=== PATIENT | female | born 1975 | race Caucasian/White ===

== ENCOUNTER 2018-05-10 14:46 | Outpatient (CLI) | payer BC, MEDICAID ==
[~2018-05-10 14:46] MED LIST: CLON0.2T PO; HYDR-3964 PO; IBUP-1985 PO; LISD40CA PO; LISI10TA4 PO
== END 2018-05-10 23:59 | disposition home or self-care (01) ==
LOC: CARD DIAG 14:46
PROVIDERS: ATTEND Internal Medicine Cardiovascular Disease
DX: Z01.818 Encounter for other preprocedural examination (principal); I05.9 Rheumatic mitral valve disease, unspecified; I11.9 Hypertensive heart disease without heart failure; F17.200 Nicotine dependence, unspecified, uncomplicated
CPT/HCPCS: 93306

== ENCOUNTER 2018-07-22 11:09 | Outpatient (CLI) | payer BC, MEDICAID, OTHER | END 2018-07-22 23:59 | disposition home or self-care (01) | LOC: VAS 11:09 | PROVIDERS: ATTEND Nurse Practitioner Family | DX: Q62.5 Duplication of ureter (principal); I10 Essential (primary) hypertension; F17.200 Nicotine dependence, unspecified, uncomplicated; Z98.890 Other specified postprocedural states; Z88.8 Allergy status to other drugs, medicaments and biological substances | CPT/HCPCS: 93975 ==

== ENCOUNTER 2020-02-09 11:27 | Outpatient (CLI) | payer BC, MEDICAID ==
[~2020-02-09] VITALS: Ht 172.7 cm; Wt 93.0 kg
[2020-02-09] VITALS (9 sets, daily range): BP systolic 108–137; BP diastolic 65–85
[2020-02-09] MEDS ORDERED: metoprolol tartrate 1mg/ml inj IV PRN (12:40)
[2020-02-09] MEDS ORDERED: aminophylline 250mg/10ml inj. IV PRN (12:40)
[2020-02-09] MEDS ORDERED: nitroGLYCERIN 0.4mg SUBLingual tab SL PRN (12:40)
[2020-02-09] MEDS ORDERED: normal saline 500ml IV soln 500 ML IV ONE (12:40)
[2020-02-09] MEDS ORDERED: regadenoson 0.4mg/5ml syringe IV ONE (12:40)
== END 2020-02-09 23:59 | disposition home or self-care (01) ==
LOC: RAD 11:27
PROVIDERS: ATTEND Internal Medicine Cardiovascular Disease
DX: I10 Essential (primary) hypertension (principal)
CPT/HCPCS: 78452; 93017; A9500; J0280; J2785

== ENCOUNTER 2021-06-01 05:32 | Emergency (ER) | payer BC, MEDICAID ==
[~2021-06-01] VITALS: Ht 172.7 cm; Wt 88.8 kg
[~2021-06-01 05:32] MED LIST changes: +LISI10TA27 PO; -LISI10TA4 PO
[2021-06-01 05:35] VITALS: BP 198/101
[2021-06-01] MEDS ORDERED: MECL-231 PO (06:13)
== END 2021-06-01 06:40 | disposition home or self-care (01) ==
LOC: ER 05:32
DX: H61.21 Impacted cerumen, right ear (principal); H72.91 Unspecified perforation of tympanic membrane, right ear; I10 Essential (primary) hypertension; F41.9 Anxiety disorder, unspecified
CPT/HCPCS: 69209; 99284

== ENCOUNTER 2023-09-12 19:53 | Emergency (ER) | payer BC, MEDICAID ==
[~2023-09-12] VITALS: Ht 172.7 cm; Wt 84.1 kg
[~2023-09-12 19:53] MED LIST changes: +MECL-231 PO
[2023-09-12 20:09] VITALS: BP 250/159; PULSE 94; RESP 18; TEMP 97; O2SAT 98
== END 2023-09-12 21:24 | disposition left against medical advice (07) ==
LOC: ER 19:53
DX: R10.9 Unspecified abdominal pain (principal); Z53.21 Procedure and treatment not carried out due to patient leaving prior to being seen by health care provider
CPT/HCPCS: 99281

== ENCOUNTER 2023-12-11 08:23 | Emergency (ER) | payer MEDICAID ==
[~2023-12-11] VITALS: Ht 172.7 cm; Wt 82.6 kg
[2023-12-11 08:33] VITALS: TEMP 97.8
[2023-12-11 09:33] LABS: BASOPHILS % (AUTO) 0.7 % (0-1); EOSINOPHILS # (AUTO) 0.3 X10'3 (0-0.9); EOSINOPHILS % (AUTO) 4.8 % (0-6); HEMATOCRIT 40.9 % (35.0-45.0); HEMOGLOBIN 14.1 g/dl (12.0-16.0); LYMPHOCYTES # (AUTO) 1.8 X10'3 (1.1-4.8); LYMPHOCYTES % (AUTO) 27.9 % (21-51); MEAN CORPUSCULAR HEMOGLOBIN 30.9 PG (27.0-31.0); MEAN CORPUSCULAR HGB CONC 34.5 g/dL (33.0-36.5); MEAN CORPUSCULAR VOLUME 89.7 FL (78-98); MEAN PLATELET VOLUME 9.1 FL (7.4-10.4); MONOCYTES # (AUTO) 0.6 X10'3 (0-0.9); MONOCYTES % (AUTO) 8.7 % (2-12); NEUTROPHILS # (AUTO) 3.8 X10'3 (1.8-7.7); NEUTROPHILS % (AUTO) 57.9 % (42-75); PLATELET COUNT 251 X10'3 (140-440); RED BLOOD COUNT 4.56 X10'6 (4.20-5.60); RED CELL DISTRIBUTION WIDTH 12.9 % (11.5-14.5); WHITE BLOOD COUNT 6.5 X10'3 (4.5-11.0)
[2023-12-11 09:49] LABS: ALANINE AMINOTRANSFERASE 20 U/L (12-78); ALBUMIN 3.3 G/DL (3.4-5.0); ALBUMIN/GLOBULIN RATIO 0.8 (1.1-1.5); ALKALINE PHOSPHATASE 86 IU/L (46-116); AMYLASE 47 U/L (25-115); ANION GAP 10 (8-16); ASPARTATE AMINO TRANSFERASE 19 U/L (10-37); BILIRUBIN,TOTAL 0.4 MG/DL (0.1-1.0); BLOOD UREA NITROGEN 19 MG/DL (7-18); BUN/CREATININE RATIO 19.8 (10.0-20.0); CALCIUM 8.9 MG/DL (8.5-10.1); CHLORIDE 107 MMOL/L (99-107); CREATININE 0.96 MG/DL (0.40-0.90); GLUCOSE 108 MG/DL (70-104); LIPASE 54 U/L (16-77); POTASSIUM 3.9 MMOL/L (3.5-5.1); SODIUM 143 MMOL/L (135-145); TOTAL CARBON DIOXIDE 26.5 MMOL/L (24-32); TOTAL PROTEIN 7.5 G/DL (6.4-8.2); eCRCL 73 ML/MIN; eGFR 62 ML/MIN
[2023-12-11 12:38] LABS: BASOPHILS % (AUTO) 0.6 % (0-1); EOSINOPHILS # (AUTO) 0.3 X10'3 (0-0.9); EOSINOPHILS % (AUTO) 4.4 % (0-6); HEMATOCRIT 39.4 % (35.0-45.0); HEMOGLOBIN 13.4 g/dl (12.0-16.0); LYMPHOCYTES # (AUTO) 1.8 X10'3 (1.1-4.8); LYMPHOCYTES % (AUTO) 31.2 % (21-51); MEAN CORPUSCULAR HEMOGLOBIN 30.4 PG (27.0-31.0); MEAN CORPUSCULAR VOLUME 89.4 FL (78-98); MONOCYTES # (AUTO) 0.5 X10'3 (0-0.9); NEUTROPHILS # (AUTO) 3.3 X10'3 (1.8-7.7); NEUTROPHILS % (AUTO) 55.8 % (42-75); PLATELET COUNT 256 X10'3 (140-440); RED BLOOD COUNT 4.41 X10'6 (4.20-5.60); RED CELL DISTRIBUTION WIDTH 12.8 % (11.5-14.5); WHITE BLOOD COUNT 5.9 X10'3 (4.5-11.0)
[2023-12-11 13:36] VITALS: O2SAT 98
[2023-12-11 15:46] LABS: BILIRUBIN,URINE NEGATIVE (Neg); CLARITY,URINE SLIGHTLY CLOUDY (Clear); COLOR,URINE YELLOW (Yellow); GLUCOSE, URINE NEGATIVE (Neg); KETONES,URINE NEGATIVE (Neg); LEUKOCYTE ESTERASE ,URINE NEGATIVE (Neg); NITRITES, URINE NEGATIVE (Neg); OCCULT BLOOD,URINE NEGATIVE (Neg); PROTEIN,URINE NEGATIVE (Neg); UROBILINOGEN,URINE 0.2 E.U/dL (0.2-1.0)
[2023-12-11 15:48] LABS: URINE HCG NEGATIVE (NEG)
[2023-12-11 15:52] LABS: SQUAMOUS EPITHELIAL CELL,UR MANY /LPF (FEW); UA COLLECTION TYPE NON-SPECIFIED
[2023-12-11 15:53] LABS: BACTERIA,URINE 1+ /HPF (Neg); MUCUS STRANDS FEW /LPF (Neg); RBC,URINE 0-2 /HPF (0-2); TRANSITIONAL EPI CELLS,URINE FEW /HPF; WBC,URINE 0-4 /HPF (0-4)
[2023-12-11 16:47] VITALS: RESP 16
[2023-12-11] MEDS: cloNIDine 0.1 mg tablet PO ONE (16:52)
[2023-12-11 17:00] VITALS: BP 162/91; PULSE 69
== END 2023-12-11 17:02 | disposition home or self-care (01) ==
LOC: ER 08:24
DX: R19.04 Left lower quadrant abdominal swelling, mass and lump (principal); I10 Essential (primary) hypertension; F17.200 Nicotine dependence, unspecified, uncomplicated; Z88.8 Allergy status to other drugs, medicaments and biological substances; Z79.899 Other long term (current) drug therapy
CPT/HCPCS: 36415; 74176; 80053; 81001; 81025; 82150; 83690; 85025; 99284